=== PATIENT | female | born 1965 | race Caucasian/White ===

== ENCOUNTER 2016-06-22 08:05 | Emergency (ER) ==
[2016-06-22] MEDS ORDERED: ASPIRIN PO STA (08:27)
[2016-06-22] MEDS ORDERED: NITROGLYCERIN SL PRN (08:27)
--- NOTE | 2016-06-22 08:41 | ED EKG INTERP ---
EKG Interpretation - EKG Time of EKG reading by physician:: 08:10 EKG Read and Signed by:: Fabian Schulte EKG Interpretation (*Must complete 3 of following elements*): Normal Rate: 61 Rhythm: normal sinus rhythm Comments: normal ECG Attestation - Scribe Verification/Attestation Scribe:: Mirlande Cunningham Acting as Scribe for:: Fabian Schulte Scribe documention review:: This chart was documented by a scribe and accurately reflects the service the provider performed and the decisions made by the provider.
[2016-06-22 08:44] LABS: MANUAL DIFF NEEDED? NO
[2016-06-22 08:47] LABS: BASO% 0.8 % (0.0-0.8); EOS# 0.06 X1000 (0.0-0.7); HEMATOCRIT 41.9 % (37.0-47.0); HEMOGLOBIN 14.5 g/dL (12.0-16.0); LYMPH# 1.22 X1000 (1.2-3.4); LYMPH% 20.1 % (20.5-51.1); MCH 27.6 PG (27-31); MCHC 34.6 g/dL (33-37); MCV 79.7 FL (81-99); MONO# 0.36 X1000 (0.11-0.59); MONO% 5.9 % (1.7-9.3); NEUT% 72.2 % (42.2-75.2); PLT 359 X1000 (130-400); RBC 5.26 XMIL (4.2-5.4)
[2016-06-22 08:58] LABS: INR 0.96; PROTIME 9.8 Seconds (9.2-11.7); PTT 20.8 Seconds (22.0-36.0)
[2016-06-22 09:10] LABS: AGAP 18; ALBUMIN 4.2 g/dL (3.5-5.0); ALKALINE PHOSPHATASE 108 U/L (32-104); BUN 9 mg/dL (8-22); CALCIUM 9.7 mg/dL (8.8-10.2); CHLORIDE 99 mmol/L (98-107); CK PROFILE 64 U/L (24-173); COSMO 271; GOT 29 U/L (10-30); GPT 18 U/L (10-36); MAGNESIUM 1.8 mg/dL (1.5-2.7); POTASSIUM 4.3 mmol/L (3.5-5.1); SODIUM 136 mmol/L (136-145); TCO2 19 mmol/L (25-35); TOTAL BILIRUBIN 0.71 mg/dL (0.20-1.00); TOTAL PROTEIN 7.4 g/dL (6.3-8.3)
--- NOTE | 2016-06-22 09:56 | Diag Imaging Result Document ---
PROCEDURE NAME: CHEST-2 VIEWS - 06/22/2016 CHEST X-RAY 2 VIEWS, 06/22/2016: COMPARISON: 05/12/2016. FINDINGS: The lungs are normally expanded and clear. Heart size and mediastinal contours are normal. No pneumothorax or pleural effusion. IMPRESSION: Negative exam.
--- NOTE | 2016-06-22 10:06 | PROVIDER DOCUMENTATION ---
HPI-Musculoskeletal Pain/Inj - GENERAL Source: patient - HX OF PRESENT ILLNESS-MUSKULOSKELTAL Quality of Pain: reports: aching Severity in ED: mild Onset/Duration: 3 days ago Timing: still present Modifying Factors: improves with: nothing Any recent injury?: No Locality of Occurance: Home Similar Symptoms Previously?: Yes Recently seen or treated by another doctor?: No - BACK & NECK PAIN/INJURY Back/Neck Pain Location: reports: T-spine Back/Neck Pain Radiation: reports: Other (chest) Context / Method of Injury: reports: unknown Associated Symptoms: reports: weakness in legs/feet (bilateral), weakness in upper ext (bilateral arms). denies: loss of bladder control, loss of bowel control, fever, lower back pain, muscle spasms, numbness in legs/feet, numbness in upper ext, sensory/motor loss, tingling in legs/feet, tingling in upper ext History of Chronic Neck or Back Pain?: No <Mirlande Cunningham - Last Filed: 06/22/16 10:09> <Fabian Schulte - Last Filed: 06/22/16 11:30> - GENERAL Chief Complaint: Chest Pain Stated Complaint: Chest pain Time Seen by Provider: 06/22/16 09:06 - HX OF PRESENT ILLNESS-MUSKULOSKELTAL Nature of Presenting Problem: Pt is 51 y/o F presents to the ED with back pain. Pt states back pain started Monday. Pt states the pain was intermittent until this am at 0300. Pt states the back pain started to become constant this am. Pt states having N. Pt states back pain started to radiate to central chest today. Pt states feeling weak. Pt states she tried to drive herself to the ED but started hyperventilating and had to call EMS. Pt denies recent injury or trauma to back. (Mirlande Cunningham) Review of Systems - Adult - REVIEW OF SYSTEMS - ADULT Constitutional: reports: no symptoms reported Eyes: reports: no symptoms reported Ears, Nose, Mouth & Throat: reports: no symptoms reported Cardiovascular: reports: chest pain. denies: heart murmur, irregular heart rate Respiratory: reports: no symptoms reported Gastrointestinal: reports: nausea. denies: abdominal pain, diarrhea, vomiting Genitourinary: reports: no symptoms reported Musculoskeletal: reports: back pain. denies: bone pain, joint pain, neck pain Integumentary: reports: no symptoms reported Neurological: denies: dizziness/vertigo, headache/migraines, syncope Psychiatric: reports: no symptoms reported Endocrine: reports: no symptoms reported Hematologic/Lymphatic: reports: no symptoms reported Allergic/Immunologic: reports: no symptoms reported All Other Systems: Reviewed and Negative <Brianna Cunninghamomi - Last Filed: 06/22/16 10:09> Past History - Adult - PAST MEDICAL HISTORY-ADULT Review of Records: reports: Nursing Assessment Review, Medications Reviewed, Social history reviewed & non-contributory. Major Childhood Illnesses: reports: denies history Cardiovascular: reports: HTN Respiratory: reports: denies history Gastrointestinal: reports: GERD Obstetrical/Gynecological: reports: denies history Genitourinary: reports: denies history Musculoskeletal: reports: denies history Neurological: reports: other (head trauma ) Psychiatric: reports: other (panic attack ) Endocrine/Immune: reports: denies history Other Conditions: reports: psoriasis - PRIOR SURGERIES/PROCEDURES Surgical/Procedure History: reports: appendectomy, cholecystectomy, hysterectomy , other (fatty tumor removed from groin) - IMMUNIZATION STATUS Childhood Immunizations: See Nurse Assessment Flu Vaccine: See Nurse Assessment - FAMILY HISTORY Family History: reviewed, not pertinent - SOCIAL HISTORY Smoking: quit greater than 1 year, cigarettes Substance Use: denies Living Situation: family <Brianna Cunninghamomi - Last Filed: 06/22/16 10:09> Physical Exam-Injury Related - Physical Exam-Injury Related Initial Vital Signs Reviewed: Yes General Appearance: appears well, alert, no apparent distress Eyes: PERRL/EOMI, pink conjunctivae, fundi clear, no AV nicking Head, Ears, Nose, Mouth & Throat: normocephalic/atraumatic, moist mucous membranes, normal ENT inspection, TMs normal, pharynx normal Neck: non-tender, full range of motion, supple, normal inspection Respiratory: chest non-tender, lungs clear, normal breath sounds, no pleuratic chest pain, no respiratory distress, no accessory muscle use Cardiovascular: normal peripheral pulses, regular rate, rhythm, no edema, no gallop, no JVD, no murmur Abdominal Exam: normal bowel sounds, non tender, soft, no organomegaly, no pulsatile mass Lymphatic: no adenopathy Back Exam: no vertebral tenderness, CVA tenderness (T spine) Extremity: normal range of motion, non-tender, normal gait, normal inspection, no pedal edema, no calf tenderness, normal capillary refill Integumentary: normal color, warm/dry Neurologic: grossly normal Psych/Mental Status: normal mood/affect, oriented x 3 <Mirlande Cunningham - Last Filed: 06/22/16 10:09> Progress - XRAY 1 XRAY: Bilateral XRAY Study: Chest Impression: Normal XRAY Interpretation: negative <Mirlande Cunningham - Last Filed: 06/22/16 10:09> <Fabian Schulte - Last Filed: 06/22/16 11:30> - PLAN OF CARE/RESULTS Progress/Plan/Lab Results: Laboratory Tests 06/22/16 06/22/16 06/22/16 08:15 08:15 08:15 WBC 6.07 RBC 5.26 Hgb 14.5 Hct 41.9 MCV 79.7 L MCH 27.6 MCHC 34.6 RDW Std Deviation 13.0 Plt Count 359 MPV 10.0 Immature Gran % (Auto) 0.0 Neut % (Auto) 72.2 Lymph % (Auto) 20.1 L Wells % (Auto) 5.9 Eos % (Auto) 1.0 Baso % (Auto) 0.8 Immature Gran # (Auto) 0.00 Neut # (Auto) 4.38 Lymph # (Auto) 1.22 Wells # (Auto) 0.36 Eos # (Auto) 0.06 Baso # (Auto) 0.05 PT INR PTT (Actin FS) D-Dimer 0.18 Sodium 136 Potassium 4.3 Chloride 99 Carbon Dioxide 19 L Anion Gap 18 BUN 9 Creatinine 0.8 Estimated GFR/1.73 m2 > 60 BUN/Creatinine Ratio 11 Glucose 101 Calculated Osmolality 271 Calcium 9.7 Magnesium 1.8 Total Bilirubin 0.71 AST 29 ALT 18 Alkaline Phosphatase 108 H Creatine Kinase 64 Troponin T Kqi-[id number]-Zyjwwppcyuw Pept Total Protein 7.4 Albumin 4.2 Globulin 3.2 Albumin/Globulin Ratio 1.3 06/22/16 06/22/16 06/22/16 08:15 08:15 08:15 WBC RBC Hgb Hct MCV MCH MCHC RDW Std Deviation Plt Count MPV Immature Gran % (Auto) Neut % (Auto) Lymph % (Auto) Wells % (Auto) Eos % (Auto) Baso % (Auto) Immature Gran # (Auto) Neut # (Auto) Lymph # (Auto) Wells # (Auto) Eos # (Auto) Baso # (Auto) PT 9.8 INR 0.96 PTT (Actin FS) 20.8 L D-Dimer Sodium Potassium Chloride Carbon Dioxide Anion Gap BUN Creatinine Estimated GFR/1.73 m2 BUN/Creatinine Ratio Glucose Calculated Osmolality Calcium Magnesium Total Bilirubin AST ALT Alkaline Phosphatase Creatine Kinase Troponin T < 0.010 [id number] Pept 118 Total Protein Albumin Globulin Albumin/Globulin Ratio Orders Category Date Time Status Cardiac Monitoring DIRECTED Care 06/22/16 08:28 Active Saline Loc NOW Care 06/22/16 08:28 Active CHEST-2 VIEWS [RAD] Stat Exams 06/22/16 08:28 Draft CBC WITH ELECTRONIC DIFF [HEME] Stat Lab 06/22/16 08:15 Completed CK PROFILE [SP CHEM] Stat Lab 06/22/16 08:15 Completed COMPREHENSIVE METABOLIC PANEL [CHEM] Stat Lab 06/22/16 08:15 Completed D-DIMER [CHEM] Stat Lab 06/22/16 08:15 Completed MAGNESIUM [CHEM] Stat Lab 06/22/16 08:15 Completed PRO B-NATRIURETIC PEPTIDE Stat Lab 06/22/16 08:15 Completed PROTIME WITH INR [COAG] Stat Lab 06/22/16 08:15 Completed PTT [COAG] Stat Lab 06/22/16 08:15 Completed TROPONIN T Stat Lab 06/22/16 08:15 Completed Aspirin Med 06/22/16 08:27 Discontinued 325 mg PO STAT STA Nitroglycerin Sl [Nitroglycerin] Med 06/22/16 08:27 Active 0.4 mg SL Q5M PRN PRN EKG [EKG] Stat Ther 06/22/16 08:28 Ordered Vital Signs - 24 hr 06/22/16 06/22/16 08:20 09:47 Temperature 97.8 F Pulse Rate 63 68 Respiratory 22 15 Rate Blood Pressure 131/87 128/76 O2 Sat by Pulse 100 100 Oximetry (Mirlande Cunningham) Departure <Mirlande Cunningham - Last Filed: 06/22/16 10:09> - Departure Time of Disposition Order: 11:25 Certified Medical Emergency: Emergent <Fabian Schulte - Last Filed: 06/22/16 11:30> - Departure DIAGNOSIS: Musculoskeletal back pain Disposition: HOME 01 Condition: Good Prescriptions: Cyclobenzaprine [Flexeril] 10 mg PO TID PRN #30 tablet PRN Reason: Spasms Ibuprofen [Motrin] 600 mg PO Q6-8H PRN PRN #30 tablet PRN Reason: Pain Hydrocodone/Acetaminophen [[place] 10-325 Tablet] 1 each PO Q4-6H PRN PRN #20 tablet PRN Reason: Pain Attestation - Scribe Verification/Attestation Scribe:: Mirlande Cunningham Acting as Scribe for:: Fabian Schulte Scribe documention review:: This chart was documented by a scribe and accurately reflects the service the provider performed and the decisions made by the provider. <Mirlande Cunningham - Last Filed: 06/22/16 10:09> Physician Attestation
--- NOTE | 2016-06-22 11:21 | Diag Imaging Result Document ---
PROCEDURE NAME: THORACIC SPINE W/O CONTRAST - 06/22/2016 CT THORACIC SPINE WITHOUT CONTRAST: FINDINGS: There is good alignment to the thoracic spine. No subluxation. There are tiny degenerative bone spurs. No compressed vertebra. No other fracture. The proximal ribs appear normal. No bone destruction. No spinal stenosis. No pleural effusions. There are scattered calcified granuloma in the posterior lungs. There are no infiltrates. IMPRESSION: Mild degenerative changes, otherwise negative exam. A preliminary report was given at 10:57 a.m..
[2016-06-22] MEDS ORDERED: TORADOL IM ONE (11:30)
[2016-06-22] MEDS ORDERED: DECADRON IM ONE (11:31)
[2016-06-22 11:39] VITALS: BP 131/79
== END 2016-06-22 12:18 | disposition home or self-care (01) ==
LOC: EDBD → ED 08:05
DX: M79.1 Myalgia (principal); M54.9 Dorsalgia, unspecified; R53.1 Weakness; R11.0 Nausea; I10 Essential (primary) hypertension; L40.9 Psoriasis, unspecified; Z87.891 Personal history of nicotine dependence; Z79.899 Other long term (current) drug therapy
CPT/HCPCS: 71020; 72128; 80053; 82550; 83735; 83880; 84484; 85025; 85379; 85610; 85730; 93005; J1100; J1885